=== PATIENT | male | born 1980 | race Hispanic/Latino ===

== ENCOUNTER 2016-10-15 20:53 | Inpatient (IN) | payer MEDICAID, OTHER ==
[2016-10-15 21:17] LABS: BASO % 0.4 % (0.0-2.0); EOS # 0.8 K/uL (0.0-0.7); EOS % 8.9 % (0.0-4.0); HEMATOCRIT 45.9 % (35.0-51.0); LYMPH # 2.7 K/uL (1.0-4.3); LYMPH % 28.4 % (20.0-40.0); MEAN CELL VOLUME 89.5 fL (80.0-94.0); MEAN CORPUSCULAR HEMOGLOBIN 30.3 pg (27.0-31.0); MEAN CORPUSCULAR HGB CONC 33.8 g/dL (33.0-37.0); MEAN PLATELET VOLUME 6.7 fL (7.2-11.7); MONO # 0.7 K/uL (0.0-0.8); MONO % 7.6 % (0.0-10.0); RED CELL DISTRIBUTION WIDTH 13.1 % (11.5-14.5); WHITE BLOOD COUNT 9.4 K/uL (4.8-10.8)
[2016-10-15 21:30] LABS: CHLORIDE 100 mmol/L (98-107); POTASSIUM 4.2 mmol/L (3.6-5.2); SODIUM 139 mmol/L (132-148)
[2016-10-15 21:32] LABS: ALB/GLOB RATIO 1.1 (1.0-2.1); ALKALINE PHOSPHATASE 75 U/L (38-126); AST/SGOT 56 U/L (17-59); CARBON DIOXIDE 24 mmol/L (22-30); GFR AFRICAN-AMERICAN > 60; TOTAL PROTEIN 7.7 g/dL (6.3-8.3)
[2016-10-15 21:33] LABS: ALCOHOL SERUM < 10 mg/dl (0-10); ALT/SGPT 95 U/L (21-72); BLOOD UREA NITROGEN 16 mg/dL (9-20); CALCIUM 9.1 mg/dl (8.6-10.4); GLUCOSE,RANDOM 95 mg/dL (75-110)
[2016-10-15 21:34] LABS: RBC URINE 8 /hpf (0-3); TRANSITIONAL EPITHIAL < 1 /hpf (0-3); URINE BACTERIA RARE (<OCC); URINE BILIRUBIN NEGATIVE (NEGATIVE); URINE BLOOD NEGATIVE (NEGATIVE); URINE GLUCOSE (UA) NORMAL (Normal); URINE KETONE NEGATIVE (NEGATIVE); URINE LEUKOCYTE ESTERASE NEG Leu/uL (Negative); URINE PROTEIN NEGATIVE (NEGATIVE); URINE UROBILINOGEN NORMAL mg/dL (0.2-1.0); WBC URINE 1 /hpf (0-5)
[2016-10-15 21:53] LABS: URINE COLOR YELLOW (YELLOW)
--- NOTE | 2016-10-15 23:53 | C.PDOC ---
History Of Present Illness 35 year old male who presents to the ER has a prescreen for detox. Patient is an IVDA, last use was 6 hours [employer]. Denies physical complaints at this time. Time Seen by Provider: 10/15/16 21:07 Chief Complaint (Nursing): Substance Abuse History Per: Patient History/Exam Limitations: no limitations Onset/Duration Of Symptoms: Days Current Symptoms Are (Timing): Still Present Suicide/Self Injury Attempted (Context): None Modifying Factor(s): Other (Opiates) Associated Symptoms: denies: Depression, Suicidal Thoughts, Suicidal Plan Involuntary Hold By: None Recent travel outside of the [place]: No Past Medical History Reviewed: Historical Data, Nursing Documentation, Vital Signs Vital Signs: Last Vital Signs Temp 98.2 F 10/16/16 01:38 Pulse 73 10/16/16 01:38 Resp 18 10/16/16 01:38 BP 122/79 10/16/16 01:38 Pulse Ox 98 10/16/16 01:38 - Medical History PMH: Anxiety, Asthma, Bronchitis, Depression, Hepatitis (C) Surgical History: No Surg Hx - [facility] DETOXIFICATION SERVICES FOR SUBSTANCE ABUSE TREATMENT (02/14/15) Family History: States: Unknown Family Hx - Social History Hx Alcohol Use: No Hx Substance Use: Yes - Immunization History Hx Tetanus Toxoid Vaccination: No Hx Influenza Vaccination: Yes Hx Pneumococcal Vaccination: No Review Of Systems Constitutional: Negative for: Fever, Chills Gastrointestinal: Negative for: Nausea, Vomiting, Diarrhea Physical Exam - Physical Exam Appears: Non-toxic, No Acute Distress Skin: Normal Color, Warm, Dry Head: Atraumatic, Normacephalic Oral Mucosa: Moist Neck: Normal, Supple Chest: Symmetrical, No Tenderness Cardiovascular: Rhythm Regular, No Murmur Respiratory: Normal Breath Sounds, No Rales, No Rhonchi, No Wheezing Gastrointestinal/Abdominal: Soft, No Tenderness Neurological/Psych: Oriented x3, Normal Speech, Normal Cognition ED Course And Treatment - Laboratory Results Result Diagrams: 10/15/16 21:11 10/15/16 21:11 O2 Sat by Pulse Oximetry: 97 (Room air) Pulse Ox Interpretation: Normal Progress Note: Patient evaluated by day worker, patient is medically clear for detox. Disposition - Disposition Disposition: HOSPITALIZED Disposition Time: 01:00 Condition: STABLE - Clinical Impression Clinical Impression: Opioid use disorder, severe, dependence - Scribe Statement The provider has reviewed the documentation as recorded by the Scribe Anoop Dangelo All medical record entries made by the Scribe were at my direction and personally dictated by me. I have reviewed the chart and agree that the record accurately reflects my personal performance of the history, physical exam, medical decision making, and the department course for this patient. I have also personally directed, reviewed, and agree with the discharge instructions and disposition.
[2016-10-15] MEDS ORDERED: Aluminum Hydroxide/Magnesium Hydroxide Susp (30 mL) PO PRN (23:59)
[2016-10-16] MEDS ORDERED: Albuterol HFA 90 mcg/actuation (8 g) INH PRN (01:31)
[2016-10-16 01:55] VITALS: RESP 18
--- NOTE | 2016-10-16 07:27 | PCM.BM ---
<GabrielSelma Harper - Last Filed: 10/16/16 07:26> Treatment Plan Problems - Problems identified on initial assessmt Opiate Dependence Date Initiated: 10/16/16 Time Initiated: 07:00 Assessment reference: NA Status: Active Treatment assets and liabiliti Patient Assests: ADL independent Patient Liabilities: substance abuse, legal issue - Milieu Protocol Maintain good personal hygiene: daily Encourage regular showers, daily Remind patient to perform daily oral care, daily Assist patient to perform ADL's Maintain personal safety: every shift Educate patient to report safety concerns to staff, every shift Monitor environment for contraband/sharps Medication safety: Monitor for expected outcome, potential side effects: every shift, Assess barriers to learning: every shift, Assess readiness for medication education: every shift <Gilma Rizo - Last Filed: 10/16/16 14:15> Family Contact Family involvement: Famliy/SO not involved Family contact: Patient agrees to contact - Goals for Treatment Patient goals for treatment: Complete detox and at a later point in time, discuss aftercare options as pt. is unsure and feeling ill currently. Discharge/Continuing Care - Education Needs Education Needs: Patient Medication, Patient Diagnosis/Disease Process, Patient Coping Skills, Patient Anger Management skills, Patient Placement options, Patient Community resources - Discharge Discharge Criteria: No longer exhibiting s/s of withdrawal, Reduction of target symptoms - Treatment Team Participation Patient/Family/SO Statement: 10/16/16 14:16 "I don't know what I wanna do but I'm open talking about it when I feel better. I feel too nauseous right now..." Discussed with Family/SO: No Was Patient/Family/SO present at Treatment Team Meeting: No ( saw Pt. at bedside as he was too ill to attend.) <Ivon Jeong - Last Filed: 10/16/16 22:23> - Diagnosis (1) Opioid use disorder, severe, dependence Status: Acute Interventions: 10/16/16 22:23 * Assess 7x/week regarding severity of withdrawal * Educate regarding risks, benefits, side effects and alternatives of medications * Use Motivational Interviewing for abstinence * Use CBT for relapse prevention * Medication management for withdrawal symptoms * Encourage medication assisted treatment *
[2016-10-16] MEDS ORDERED: Fluticasone-Salmeterol 250-50mcg Diskus IH SCH (10:00)
[2016-10-16 10:47] VITALS: O2SAT 96
[2016-10-16] MEDS ORDERED: Buprenorphine Hydrochloride 2 mg SL ONE ×3 (11:32→13:43)
[2016-10-16 13:42] VITALS: BP 128/85; PULSE 65; TEMP 98
--- NOTE | 2016-10-16 14:52 | PCM.PSYCH ---
Initial Psychiatric Evaluation - Initial Psychiatric Evaluation Type of Admission: Voluntary Legal Status: Capacity Chief Complaint (in patient's own words): "I'm feeling withdrawal symptoms" History of Present Illness and Precipitating Events: The pt is seen, chart reviewed and case discussed. Mr. Cowan is a 35 yo male who presented to the ED this morning requesting heroin detox. The patient is currently experiencing wxw sxs; he is experiencing nausea and is vomiting brown fluids (no blood) since last night, but denies diarrhea. The patient was admitted for detox a few years ago. Patient states that he shoots 12-20 bags/day of heroin. Patient sates that he relapsed 1 month ago for unspecified reasons, and that he last used yesterday at 5 pm. The patient states that he first used opioids at 16 years old and that its been a problem ever since. The patient states that he's never been to rehab and would not like to go. 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 He was unmotivated for any tx. He denies seizure activity. He denies hallucinations. Past Psychiatric Hx: 1 prior admission for opioid detox. Smokes 1/2 pack/day of tobacco, denies cocaine, marijuana, benzodiazepines, and occasionally drinks alcohol. 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 Family Psychiatric Hx: No hx in family Current Medications: Active Medications Generic Name Dose Route Start Last Admin Trade Name Freq PRN Reason Stop Dose Admin Acetaminophen 650 mg 10/15/16 23:59 Tylenol 325mg Tab PO Q4H PRN Fever greater than 101 F Al Hydrox/Mg Hydrox/Simethicone 30 ml 10/15/16 23:59 Maalox 30 Ml PO TID PRN Indigestion / Heartburn Albuterol 1 puff 10/16/16 01:31 Ventolin Hfa 90 Mcg/Actuation (8 G) INH RQ4 PRN Shortness of Breath/Wheezing Buprenorphine HCl 6 mg 10/17/16 09:00 Subutex SL 10/20/16 08:59 .TAPER DANTE Taper Clonidine HCl 0.1 mg 10/15/16 23:59 10/16/16 14:42 Catapres PO 0.1 mg Q8 PRN Administration COWS Score More or Equal to 5 Loperamide HCl 2 mg 10/15/16 23:59 Imodium PO Q8 PRN Diarrhea Ondansetron HCl 4 mg 10/15/16 23:59 Zofran Tab PO Q8 PRN Nausea/Vomiting Pseudoephedrine HCl 60 mg 10/15/16 23:59 Sudafed Tab PO QID PRN Nasal/Sinus Congestion Fluticasone/Salmeterol 1 puff 10/16/16 10:00 10/16/16 13:39 Advair Diskus 250/50 IH Not Given Q12 DANTE Trazodone HCl 50 mg 10/15/16 22:00 Desyrel PO HS DANTE Past Psychiatric History - Past Psychiatric History Previous Treatment History: None Pertinent Medical Hx (Current Medical&Sleep Prob, Allergies): Allergies Allergy/AdvReac Type Severity Reaction Status Date / Time No Known Allergies Allergy Verified 10/15/16 20:59 No Known Home Med 10/15/16 Review of Systems - Neurological Neurological: As Per HPI. absent: Convulsions - Psychiatric Psychiatric: As Per HPI, Abnormal Sleep Pattern, Irritability. absent: Hallucinations, Homicidal Ideation, Suicidal Ideation Mental Status Examination - Personal Presentation Personal Presentation: Looks older than stated age - Affect Affect: Constricted - Motor Activity Motor Activity: Psychomotor Agitation - Reliability in Providing Information Reliability in Providing Information: Poor, due to altered mood - Speech Speech: Organized - Mood Additional comments: Irritated - Formal Thought Process Formal Thought Process: No Impairment - Obsessions/Compulsions Obsessions: No Compulsions: No - Cognitive Functions Orientation: Person, Place, Situation, Time Sensorium: Drowsy Attention/Concentration: Attentive Abstract Thinking: [place] Estimate of Intelligence: Average Judgement: Intact, as evidence by: Insight regarding need for hospitalization Memory: Recent intact, as evidence by: Ability to recall events of the day, Remote intact, as evidenced by: Abilit to recall sig. life events - Risk Risk: Withdrawal, Diminished functioning - Strength & Assets Inventory Strength & Assets Inventory: Employment history, Cooperative - Limitations Limitations: Living alone DSM 5 DX - DSM 5 DSM 5 Diagnosis: Opioid withdrawal Opioid use d/o - severe Tobacco use d/o - severe r/o personality d/o - Recommended/Plan of Treatment Treatment Recommendations and Plan of Treatment: Subutex detox, taper Gabapentin for augmentation As needed meds and vitamins Attend groups and activities ID for abstinence and CBT for relapse prevention Support and psychoeducation Consider and encourage MAT Refer to after care 33 min Projected ELOS: 4 Days Prognosis: Good with tx - Smoking Cessation Smoking Cessation Initiated: Yes
--- NOTE | 2016-10-16 22:22 | PCM.PYCHDC ---
Mental Status Examination - Mental Status Examination Orientation: Person, Place, Situation, Time Memory: Intact Mood: Anxious, Other (irate) Affect: Constricted Speech: Appropriate Attention: WNL Concentration: Poor Association: WNL Fund of Knowledge: WNL Formal Thought Process: No Impairment Suicidal Ideation: No Current Homicidal Ideation?: No Discharge Summary - Discharge Note Reason for Hospitalization: Heroin detox Psychiatric History (includes Medical, Family, Personal Hx): None Consultations:: List each consultation separately and include: 1. Reason for request. 2. Findings. 3. Follow-up Summary of Hospital Course include:: 1. Description of specific treatment plan utilized for patients during their course of treatmen. 2. Summarize the time- course for resolution of acute symptoms and/or regressed behaviors. 3. Describe issues identified and worked on during hospitalization. 4. Describe medication utilized. 5. Describe medical problems identified and treated. 6. Reassessment of suicide risk Summary of Hospital Course: Pt came in, mostly stayed in bed and started to withdraw in the afternood. Subutex 8 mg given with good result. risks discussed. He then suddenly asked to leave AMA b/c he had a "court tomorrow," which sounded made-up Risks of leaving in the middle (even beginning) of his detox, incl. relapse, OD and even , discussed but he did not change his mind. Pt AMA'ed and got arrested outside the unit by the [facility] b/c of a warrant. He had allegedly violated parole and made threats. They took him into custody and will continue his treatment at a a [facility] facility, as per officers. - Final Diagnosis (DSM 5) Condition upon Discharge: FAIR DSM 5: Opioid withdrawal Opioid use d/o - severe Tobacco use d/o Personality d/o Carpal tunnel syndrome Hep C Disposition: AGAINST MEDICAL ADVICE Follow-up Treatment Plan: Use relapse prevention skills Return to ER or call 911 if suicidal, homicidal or symptoms relapse. Stay away from stress, alcohol and drugs. See primary doctor once a year. Consider MAT; ie Vivitrol, sbx or methadone - Smoking Cessation Smoking Cessation Medication prescribed: No - Antipsychotic Medications Pt discharged on 2 or more routine antipsychotic medications: No
[2016-10-17] MEDS ORDERED: Buprenorphine Hydrochloride 2 mg SL SCH (09:00)
== END 2016-10-16 16:15 | disposition left against medical advice (07) | DRG 743 ==
LOC: C.ER 20:53 → C.5E 22:39 → C.7D 23:02
PROVIDERS: ADMIT Psychiatry & Neurology Psychiatry; ATTEND Psychiatry & Neurology Psychiatry
PROC: HZ2ZZZZ Detoxification Services for Substance Abuse Treatment (ICD-10-PCS; principal; 2016-10-15)
DX: F11.23 Opioid dependence with withdrawal (principal); F32.9 Major depressive disorder, single episode, unspecified; B19.20 Unspecified viral hepatitis C without hepatic coma; F41.9 Anxiety disorder, unspecified; J45.909 Unspecified asthma, uncomplicated; F17.210 Nicotine dependence, cigarettes, uncomplicated